=== PATIENT | male | born 1995 | race Caucasian/White ===

== ENCOUNTER → 2016-06-16 | Outpatient (CLI) | payer BC ==
[~2016-06-16] MED LIST: ARIP1TAB8 PO; BUPR-79 PO; BUPRTAB51 PO; ESCI1TAB10 PO; FLUV50TA2 PO
[2016-06-16 10:20] LABS: BENZODIAZEPINE, URINE NEG (NEG); COCAINE,URINE NEG (NEG); PHENCYCLIDINE, URINE NEG (NEG)
== END | disposition home or self-care (01) ==
LOC: C.LAB 09:07
PROVIDERS: ATTEND Psychiatry & Neurology Psychiatry
DX: F33.3 Major depressive disorder, recurrent, severe with psychotic symptoms (principal)

== ENCOUNTER 2016-11-20 22:11 | Emergency (ER) | payer BC ==
[~2016-11-20] VITALS: Ht 185.4 cm; Wt 115.7 kg
[~2016-11-20 22:11] MED LIST changes: -FLUV50TA2 PO
[2016-11-20 22:13] VITALS: TEMP 36.9; Ht 185.4 cm; Wt 115.7 kg
[2016-11-20] MEDS ORDERED: LORAZEPAM 1 MG TAB PO STA (22:30)
[2016-11-20] MEDS ORDERED: XYLOCAINE 1%/SOD BICARB 20 ML VIAL INFIL ONE (22:30)
[2016-11-20] MEDS ORDERED: OXYCODONE/ACETAMINOPHEN 5-325 TAB PO STA (22:30)
[2016-11-20] MEDS ORDERED: FLUV50TA2 PO (22:39)
[2016-11-21 00:26] VITALS: BP 132/76; PULSE 88; O2SAT 98
--- NOTE | 2016-11-21 05:19 | EMERGENCY ROOM VISIT NOTE ---
History First contact with patient: 22:19 Chief Complaint: WOUND INFECTION Stated Complaint: CYST ON LOWER BACK Nursing Triage Summary: reddened and painful area to coccyx. History of Present Illness The patient is a 21 year old male who presents to the Emergency Room with complaints of painful cyst above his tailbone. Patient states that he has had symptoms slowly worsening over the past week. He has not had drainage or discharge, and has not had symptoms like this in the past. The patient is not diabetic. He does not have a history of ulcerative colitis or inflammatory bowel disease. The patient rates his discomfort a 7/10 and worse when he sits. Review of Systems More than 10 systems were reviewed and otherwise negative with the exception of history of present illness. Past Medical/Surgical History Medical Problems: (1) Anxiety (2) Depression Family History Patient reports no known family medical history. Social History Smoking Status: Current Every Day Smoker Alcohol Use: occasionally Drug Use: marijuana Marital Status: single Occupation Status: [employer] student Current/Historical Medications Scheduled Aripiprazole (Abilify), 10 MG PO DAILY Bupropion (Wellbutrin-Xl), 300 MG PO DAILY Fluvoxamine Maleate (Luvox), 50 MG PO HS Physical Exam Vital Signs Date Time Temp Pulse Resp B/P (MAP) Pulse Ox O2 Delivery O2 Flow Rate FiO2 11/21/16 00:26 88 16 132/76 98 11/20/16 22:13 36.9 95 18 138/83 98 Room Air Pain Rating (0-10): 2.0 Physical Exam VITALS: Vitals are noted on the nurse's note and reviewed by myself. Vital signs stable. GENERAL: Well-developed, well-nourished, white male, who is in no acute distress and resting comfortably. Patient is cooperative with the examination. HEART: Regular rate and rhythm without murmurs gallops or rubs. LUNGS: Clear to auscultation bilaterally without wheezes, rales or rhonchi. No retractions or accessory muscle use. NEURO: Patient was alert and oriented to person place and time. CN II through XII grossly intact SKIN: The skin was with obvious pilonidal abscess at the superior aspect of the gluteal cleft. There is fluctuance inferiorly. Medical Decision & Procedures Medications Administered Medications (Trade) Dose Ordered Sig/Abran Route Start Time Stop Time Status Last Admin Dose Admin Oxycodone/ Acetaminophen (Percocet 5-325mg Tab) 2 tab NOW STAT PO 11/20/16 22:30 11/20/16 22:32 DC 11/20/16 22:49 2 TAB Lorazepam (Ativan Tab) 1 mg NOW STAT PO 11/20/16 22:30 11/20/16 22:32 DC 11/20/16 22:48 1 MG Procedure I examined the patient. Verbal consent was obtained to perform the procedure. After saline and Betadine cleansing and 5 mL of 1% buffered lidocaine anesthesia , the abscess was incised with a number 11 scalpel blade. A large amount of purulent material was released with more expressed by pressure. A swab was obtained for culture. The abscess cavity was further probed with a needle coal tram driver and the deep pocket expressed. The abscess cavity was then copiously irrigated with sterile saline under pressure. The area was then packed with bacitracin soaked packing. The area was cleaned with sterile saline and dressed with bacitracin and a bulky bandage. The patient tolerated the procedure well. ED Course Physical exam and history were performed. Nursing notes, EMR, and Medication List were personally reviewed. Patient appears to have an obvious pilonidal cyst that is grossly infected. It is fluctuant and will require incision and drainage. I discussed options of care with the patient, and elected to give him 2 Percocet and 1 Ativan prior to the procedure. The procedure was performed as above and the patient tolerated it well. His wound was packed and a culture was sent. The patient will need to have close follow-up within the next 2 days for recheck of his condition. The patient was certainly invited back to the ER with any new, worsening, or concerning symptoms. He voiced understanding and rated his discomfort a 2/10 at the time of departure. The chart was completed utilizing [employer] Speech Voice Recognition Software. Grammatical errors, random word insertions, pronoun errors, and incomplete sentences are an occasional consequence of this system due to software limitations, ambient noise, and hardware issues. Any formal questions or concerns about the content, text, or information contained within the body of this dictation should be directly addressed to the provider for clarification. . Medical Decision Differential diagnosis: Etiologies such as cellulitis, abscess, MRSA infection, DVT, necrotizing fasciitis, dermatitis, drug eruption, as well as others were entertained.. Medication Reconcilliation Current Medication List: was personally reviewed by me Blood Pressure Screening Blood pressure disposition: Elevated BP felt to be situational Impression Primary Impression: Pilonidal cyst with abscess Departure Information Dispostion Home / Self-Care Condition GOOD Forms HOME CARE DOCUMENTATION FORM, IMPORTANT VISIT INFORMATION Patient Instructions My [facility] Additional Instructions You were seen and evaluated today on an emergency basis only. This is not a substitute for, or an effort to provide, complete comprehensive medical care. It is not possible to recognize and treat all injuries or illnesses in a single emergency department visit. For this reason it is recommended that you followup with your family doctor or back in the emergency department in 36-48 hours for recheck of your condition. You were given narcotic medication here today because of your condition. Please do not drink or drive. For baseline pain relief you may alternate ibuprofen and acetaminophen every 4 hours for pain control. Take 600 mg ibuprofen (Advil) and then 4 hours later take 1000 mg acetaminophen (Tylenol). Do not take more than 3000 mg acetaminophen in a single day. Try to leave the packing material in place until your follow-up visit. You are welcome to return to the emergency department anytime with new, worsening, or concerning symptoms.
== END 2016-11-21 00:29 | disposition home or self-care (01) ==
LOC: C.EDB 22:12 → C.EDA 11-21 00:29
DX: L05.01 Pilonidal cyst with abscess (principal); F41.9 Anxiety disorder, unspecified; F32.9 Major depressive disorder, single episode, unspecified; F17.210 Nicotine dependence, cigarettes, uncomplicated; F12.90 Cannabis use, unspecified, uncomplicated; Z79.899 Other long term (current) drug therapy

== ENCOUNTER 2016-11-22 15:23 | Emergency (ER) | payer BC ==
[~2016-11-22] VITALS: Ht 185.4 cm; Wt 113.9 kg
[~2016-11-22 15:23] MED LIST changes: +FLUV50TA2 PO
[2016-11-22 15:28] VITALS: TEMP 36.9; Ht 185.4 cm; Wt 113.9 kg
[2016-11-22 16:19] VITALS: BP 153/83; PULSE 96; O2SAT 98
--- NOTE | 2016-11-23 00:26 | EMERGENCY ROOM VISIT NOTE ---
ED Visit Note First contact with patient: 15:37 CHIEF COMPLAINT: Wound recheck. HISTORY OF PRESENT ILLNESS: Mr. Shay is a 21-year-old white male who ambulates into the ED requesting a wound recheck and packing from a pilonidal cyst he had an I&D procedure performed on 2 days ago. He reports he continues to have mild pain in the area of his I&D procedure. He rates his discomfort 3/10. The pain is nonradiating. Pain worsens with palpation. He has not identified any alleviating factors related to the pain. He has not taken any medications for pain prior to arrival at the hospital. Associated with the pain he does report there is still continues to be a mild amount of drainage that appears purulent from the wound. He denies fevers, chills, sweats, other skin eruptions, skin color changes, shortness of breath, chest pain, abdominal pain, decreased appetite, nausea/ vomiting. REVIEW OF SYSTEMS: As noted above in History of Present Illness; a body systems were reviewed with the patient and found to be negative unless noted above otherwise. PHYSICAL EXAM: Vital Signs: Date Time Temp Pulse Resp B/P (MAP) Pulse Ox O2 Delivery O2 Flow Rate FiO2 11/22/16 16:19 96 20 153/83 98 11/22/16 15:28 36.9 92 20 156/87 96 Room Air General: 21-year-old white male in no acute distress, nontoxic-appearing, afebrile and hemodynamically stable. Neurological: Awake, alert and oriented 3. Answering questions appropriately and following commands. No focal motor or sensory deficits. Skin: Around patient's pilonidal cyst patient still has mild erythema but no lymphangitis. The areas warm but not hot to palpation. Although the area was not demarcated when I was reading the previous practitioner's note there does not appear to be any increasing signs of infection. Back: Please note SKIN above. No tenderness over the bony spine or throughout the paraspinous musculature. When I removed the packing patient had a small amount of purulent drainage but no active bleeding. This stopped after approximately 1 minute of packing removal. ED COURSE: Patient is assessed as noted above. Patient's packing was removed and his I&D procedure was covered with a sterile gauze bandage. Patient was educated about today's findings and instructed on his treatment plan ; he verbalizes understanding and agreement with this plan. DISPOSITION: Patient discharged home in stable condition. CLINICAL IMPRESSION: Wound recheck. Packing removal. PLAN: Patient was encouraged use ibuprofen or acetaminophen as needed for pain every 6 hours or alternate every 3. Patient was encouraged to have someone continue to observe his abscess daily and watch for signs of increasing infection. Patient was encouraged to follow-up with his PCP or return to the ED for signs of worsening infection or any new/concerning symptoms.
== END 2016-11-22 16:20 | disposition home or self-care (01) ==
LOC: C.EDB 15:24 → C.EDD 16:20
DX: L05.91 Pilonidal cyst without abscess (principal); Z48.00 Encounter for change or removal of nonsurgical wound dressing

== ENCOUNTER → 2017-03-18 | Outpatient (CLI) | payer BC ==
[~2017-03-18] MED LIST changes: -BUPR-79 PO; -ESCI1TAB10 PO
== END | disposition home or self-care (01) ==
LOC: C.LAB 17:16
PROVIDERS: ATTEND Psychiatry & Neurology Psychiatry
DX: F33.3 Major depressive disorder, recurrent, severe with psychotic symptoms (principal)

== ENCOUNTER 2017-05-27 14:47 | Emergency (ER) | payer BC ==
[~2017-05-27] VITALS: Ht 185.4 cm; Wt 106.6 kg
[2017-05-27 14:51] VITALS: BP 121/69; PULSE 84; TEMP 36.9; O2SAT 97; Ht 185.4 cm; Wt 106.6 kg
[2017-05-27] MEDS ORDERED: XYLOCAINE 1%/SOD BICARB 20 ML VIAL INFIL ONE (15:15)
[2017-05-27] MEDS ORDERED: ZOLP5TAB6 PO (16:01)
[2017-05-27] MEDS ORDERED: KETOROLAC TROMETHAMINE 60 MG/2 ML VIAL IM STA (16:01)
--- NOTE | 2017-05-27 16:01 | EMERGENCY ROOM VISIT NOTE ---
ED Visit Note First contact with patient: 14:57 CHIEF COMPLAINT: "I have an abscess right above my ass crack" HISTORY OF PRESENT ILLNESS: This 22-year-old male patient presents to the emergency department "a few weeks" after they noticed a hard, red, tender area "right above my ass crack". It is slowly getting larger, more painful and tender. The patient states he had the abscess drained approximately 6 months ago. He states a few weeks ago, he noticed it worsening. He states it has been "exponentially growing, and bilateral mean it is increasing in size daily" . No fever, chills, or loss of appetite. There has been no drainage from the area. There was no injury to the area preceding the infection. They rate the pain as minimal and 3/10. Tetanus shot is up to date. They have tried nothing. The patient is not diabetic. The patient has history of subcutaneous abscesses in the same area. REVIEW OF SYSTEMS: A 10 system review of systems was performed with positives and pertinent negatives listed in the history of present illness. All other systems were reviewed and are negative. ALLERGIES: None MEDICATIONS: None PMH: None SOCIAL HISTORY: The patient admits to smoking marijuana. He denies alcohol or tobacco use. He lives locally with family. PHYSICAL EXAM: Vital Signs: Reviewed Nurse's notes, vital signs stable. GENERAL : This is a 22-year-old white male, no acute distress, non toxic in appearance, well-developed well-nourished. SKIN: There is an erythematous indurated area in the sacrococcygeal area, just superior to the buttocks which measures about 2 cm in diameter. It is fluctuant but there is no pointing or drainage. There is a zone of inflammation around it but no lymphangitis. Capillary refill less than 2 seconds. MUSCULOSKELETAL: There is no limitation of the range of motion of the low back. EMERGENCY DEPARTMENT COURSE: I examined the patient. Verbal consent was obtained to perform the procedure. The procedure was performed by our PA student under my direct supervision. After saline and Betadine cleansing and 8 mL of 1% buffered lidocaine anesthesia, the abscess was incised with a number 11 scalpel blade. A large amount of purulent material was released with more expressed by pressure. A swab was obtained for culture. The abscess cavity was further probed with a needle truck driver flatbed and the deep pocket expressed. The abscess cavity was then copiously irrigated with sterile saline under pressure. The area was then packed with bacitracin soaked packing. The area was cleaned with sterile saline and dressed with bacitracin and a bulky bandage. The patient tolerated the procedure well. The patient was discharged home in stable condition. I attest that I have personally reviewed the patient's current medication list. Patient was found to have normal blood pressure on screening and does not require follow-up. DIFFERENTIAL DIAGNOSIS: abscess, cellulitis, pilonidal cyst, malignancy, and others DIAGNOSIS: Pilonidal abscess Problem List Medical Problems: (1) Anxiety Status: Chronic (2) Depression Status: Chronic Current/Historical Medications Scheduled PRN Zolpidem Tartrate (Zolpidem Tartrate), 5 MG PO HS PRN for Sleep Allergies Coded Allergies: No Known Allergies (Unverified , 03/04/17) Vital Signs Date Time Temp Pulse Resp B/P (MAP) Pulse Ox O2 Delivery O2 Flow Rate FiO2 05/27/17 14:51 36.9 84 18 121/69 97 Room Air Medications Administered Medications (Trade) Dose Ordered Sig/Abran Route Start Time Stop Time Status Last Admin Dose Admin Ketorolac Tromethamine (Toradol Inj) 60 mg NOW STAT IM 05/27/17 16:01 05/27/17 16:02 DC 05/27/17 16:01 60 MG Departure Information Impression Primary Impression: Pilonidal cyst with abscess Dispostion Home / Self-Care Condition GOOD Referrals Cookie Womack PA-C (PCP) Zac Quintanilla M.D. Patient Instructions ED Abscess IandD, ED Yasmine Anal Abscess IandD, My [facility] Additional Instructions You were seen in the emergency department today for a pilonidal abscess. This was successfully incised and drained. Keep the area clean and dry. There is packing in place in the wound. Do not remove the packing. Please avoid getting the area wet. The wound covered with a dry bandage. Ibuprofen(Motrin, Advil) may be used for fever or pain. Use 600mg every six hours as needed. Take with food. Avoid using more than 2400mg in a 24 hour period. Do not use 2400mg per day for more than three consecutive days without physician direction. Prolonged inappropriate use can lead to stomach upset or ulcers. (AND/OR) Acetaminophen(Tylenol) may be used for fever or pain. Use 1000mg every six hours as needed. Avoid using more than 3000mg in a 24 hour period. Return to the emergency department for worsening redness, swelling, significant purulent drainage, fever, chills, nausea, vomiting, or significantly worsening pain. Follow-up in 48 hours for packing removal and wound recheck. This follow-up can be at the emergency Department, urgent care, or your primary care provider. Please follow up with your primary care provider for ongoing management. As discussed, I do recommend follow-up with the general surgeon.
--- NOTE | 2017-05-30 15:12 | Pharmacy Progress Note ---
ED Pharmacist Culture FollowUp Date of Service: May 30, 2017. Patient was seen on 05/27/17 for abscess. Patient had I&D at visit and cultures obtained. Cultures grew Group B Beta Strep resistant to erythromycin, clindamycin, and azithromycin. Patient was not sent with abx and was to follow up in 48 hours w/ pcp or ED/urgent care/PCP for removal of packing and wound recheck. Discussed with Dr. Montenegro and no treatment necessary if improved from I&D. Called patient ~1500 to see if patient had followed up and had packing removed as patient was not seen in the ED. Patient stated they removed the packing themselves. Asked if he thought it was improved, stated it was "red and bumpy" and he would probably seek more treatment. I was not able to continue the conversation as patient abruptly ended the telephone call stating he was really busy and had to go immediately following statement.
== END 2017-05-27 16:18 | disposition home or self-care (01) ==
LOC: C.EDB 14:49 → C.EDD 16:18
DX: L05.01 Pilonidal cyst with abscess (principal); F12.90 Cannabis use, unspecified, uncomplicated; F41.9 Anxiety disorder, unspecified; F32.9 Major depressive disorder, single episode, unspecified

== ENCOUNTER 2017-07-30 16:48 | Emergency (ER) | payer BC ==
[~2017-07-30] VITALS: Ht 185.4 cm; Wt 98.4 kg
[~2017-07-30 16:48] MED LIST changes: -ARIP1TAB8 PO; -BUPRTAB51 PO; -FLUV50TA2 PO; +ZOLP5TAB6 PO
[2017-07-30 16:55] VITALS: TEMP 37; Ht 185.4 cm; Wt 98.4 kg
[2017-07-30] MEDS ORDERED: DEXT1LIQ58 PO (17:33)
[2017-07-30] MEDS ORDERED: AMOXICILLIN/CLAVULANATE TAB 875 MG TAB PO STA (17:40)
[2017-07-30] MEDS ORDERED: LIDOCAINE/EPINEPHRINE 1% 20 ML VIAL INFIL STA (17:40)
--- NOTE | 2017-07-30 18:27 | DIAGNOSTIC IMAGING REPORT ---
RIGHT HAND 3 VIEWS CLINICAL HISTORY: Right hand pain. Punching injury. FINDINGS: 3 views of the right hand are obtained. No prior studies are available for comparison at the time of dictation. The skeletal structures are well mineralized. There is minimal angulation of the distal fifth metacarpal with no acute fracture clearly identified. No additional findings are concerning for acute fracture. The joint spaces of the hand are well maintained. Dorsal soft tissue edema is noted. IMPRESSION: 1. There is mild angulation of the distal fifth metacarpal with no fracture line clearly identified. This is likely related to age indeterminant posttraumatic change. Correlate for point tenderness. 2. No additional findings are concerning for acute fracture. 3. Significant dorsal soft tissue edema is observed. Electronically signed by: Carlos Dominguez M.D. 07/30/2017 6:26 PM Dictated Date/Time: 07/30/2017 6:23 PM
--- NOTE | 2017-07-30 18:45 | EMERGENCY ROOM VISIT NOTE ---
ED Visit Note First contact with patient: 17:04 CHIEF COMPLAINT: "There's an abscess on my low back and my right hand hurts." HISTORY OF PRESENT ILLNESS: This 22-year-old male patient presents to the emergency department, ambulatory, approximately 1 week after they noticed a hard , red, tender area increasing in size over the tailbone. The patient does have a history of a pilonidal abscess, and states this has been drained 2-3 times previously. It is slowly getting larger, more painful and tender over the past week. No fever, chills, or loss of appetite. There has been no drainage from the area. There was no injury to the area preceding the infection. They rate the pain as severe and 10/10. Tetanus shot is up to date. They have tried no OTC remedies. The patient has not followed up with surgery as previously recommended. The patient is not diabetic. The patient also complains of right hand pain which began last night when he punched a garbage can. He states he is having extreme pain over the 4 metacarpals and digits #2 through 5. The patient rates the pain as sharp and 10 /10. The patient denies any numbness or tingling. The patient does not have injuries to the wrist. The patient has not had a previous fracture to this hand. He states he is unable to java jsf developer objects or make a claw. He states the injury occurred late last night, and states he just woke up and decided to come be evaluated. REVIEW OF SYSTEMS: A 10 system review of systems was performed with positives and pertinent negatives listed in the history of present illness. All other systems were reviewed and are negative. ALLERGIES: None MEDICATIONS: None PMH: None SOCIAL HISTORY: The patient lives locally with family. He denies drug, alcohol use. He admits to smoking 1 pack of cigarettes per day. PHYSICAL EXAM: Vital Signs: Reviewed Nurse's notes, vital signs stable. GENERAL : This is a 22-year-old white male, no acute distress, non toxic in appearance, well-developed well-nourished. SKIN: There is an erythematous indurated area in the sacrococcygeal area, just superior to the buttocks which measures about 2 cm in diameter. It is fluctuant but there is no pointing or drainage. There is a zone of inflammation around it but no lymphangitis. Capillary refill less than 2 seconds. MUSCULOSKELETAL: There is no limitation of the range of motion of the low back or lower extremities. There is no obvious deformity of the right hand. There is tenderness over the metacarpals and phalanges of digits #2 through 5. There is no thenar or hypothenar eminence atrophy. Limited thumb opposition to all fingers. Paper Novelty Maker strength 2/5. There is no laceration. Capillary refill less than 2 seconds. No tenderness of the fingers or wrist. Full range of motion of the wrist. No snuff box tenderness. Radial pulse 2+. RADIOLOGY: RIGHT HAND 3 VIEWS CLINICAL HISTORY: Right hand pain. Punching injury. FINDINGS: 3 views of the right hand are obtained. No prior studies are available for comparison at the time of dictation. The skeletal structures are well mineralized. There is minimal angulation of the distal fifth metacarpal with no acute fracture clearly identified. No additional findings are concerning for acute fracture. The joint spaces of the hand are well maintained. Dorsal soft tissue edema is noted. IMPRESSION: 1. There is mild angulation of the distal fifth metacarpal with no fracture line clearly identified. This is likely related to age indeterminant posttraumatic change. Correlate for point tenderness. 2. No additional findings are concerning for acute fracture. 3. Significant dorsal soft tissue edema is observed. Electronically signed by: Carlos Dominguez M.D. 07/30/2017 6:26 PM Dictated Date/Time: 07/30/2017 6:23 PM EMERGENCY DEPARTMENT COURSE: I examined the patient. X-ray of the right hand was performed and reviewed by myself and radiologist as above. There is concerned due to the mechanism and abnormality noted in the fifth metacarpal for possible boxer's fracture, and I did recommend Ortho-Glass splint or at least a removable splint. The patient declines these treatments despite discussion regarding the risks associated with refusing this treatment. I did encourage close orthopedic follow-up outpatient, and the patient declines this as well. He will be provided with the contact information for orthopedics, and was encouraged to contact them for follow-up on Tuesday. I did offer to have our field case manager schedule the patient an appointment and call him on Tuesday, and the patient declines this as well. I recommended against incision and drainage again here in the emergency department without outpatient follow-up of the pilonidal abscess. I did recommend antibiotic treatment at this time with surgery referral outpatient. The patient declines and insists that the abscess must be opened and drained again. He is agitated that the abscess continues to return, but I discussed with him the importance of follow-up outpatient for final management when there is no present infection. The patient verbalizes understanding, but states he is unsure that he will be able to afford the appointments and states he does not have time to schedule appointments. Verbal consent was obtained to perform the procedure. After saline and Betadine cleansing and 4 mL of 1% lidocaine with epinephrine anesthesia, the abscess was incised with a number 11 scalpel blade. A large amount of purulent material was released with more expressed by pressure. The patient declined culture. The abscess cavity was further probed with a needle driver utility worker and the deep pocket expressed. The abscess cavity was then copiously irrigated with sterile saline under pressure. The area was then packed with 1/4 in. packing. The area was cleaned with sterile saline and dressed with bacitracin and a bulky bandage. The patient tolerated the procedure well. The patient is very concerned regarding cost of his care here in the emergency department. He states he is unable to afford certain tests and treatments due to the associated cost. I did discuss with the patient that I am unaware of specific costs of procedures, testing, and treatment, but did discuss with him the importance of proper management and care. The nursing beet end supervisor, [place], did have a conversation with the patient, and states he was agreeable to workup recommended here in the emergency department. I did discuss with the patient the importance of proper outpatient care and did discuss with him multiple times that he will be offered and given appropriate treatment for his complaints despite the potential costs. The patient was given his first dose of Augmentin. I did offer a home pack of the medication, the patient declines. A prescription was sent to the pharmacy. Discharge instructions reviewed, the patient was discharged home in good condition. I attest that I have personally reviewed the patient's current medication list. Patient was found to have normal blood pressure on screening and does not require follow-up. Etiologies such as soft tissue injury, fracture, dislocation, neurovascular compromise, compartment syndrome, abscess, cellulitis, pilonidal cyst, malignancy, as well as others were entertained. DIAGNOSIS: Pilonidal cyst with abscess, right hand contusion Problem List Medical Problems: (1) Anxiety Status: Chronic (2) Depression Status: Chronic Current/Historical Medications Scheduled Amoxicillin & Pot Clavulanate (Augmentin 875-125 mg), 1 TAB PO BID Dextromethorphan-Phenylephrine (Vicks Dayquil Cold & Flu), 1 DOSE PO PRN UD Allergies Coded Allergies: No Known Allergies (Unverified , 03/04/17) Vital Signs Date Time Temp Pulse Resp B/P (MAP) Pulse Ox O2 Delivery O2 Flow Rate FiO2 07/30/17 19:38 75 18 111/59 97 07/30/17 18:45 80 20 104/70 97 Room Air 07/30/17 16:55 37.0 97 18 127/78 96 Room Air Medications Administered Medications (Trade) Dose Ordered Sig/Abran Route Start Time Stop Time Status Last Admin Dose Admin Amoxicillin/ Clavulanate Potassium (Augmentin Tab) 875 mg NOW STAT PO 07/30/17 17:40 07/30/17 17:44 DC 07/30/17 17:54 875 MG Lidocaine/ Epinephrine (Xylocaine/Epine 1% Inj) 20 ml NOW STAT INFIL 07/30/17 17:40 07/30/17 17:44 DC 07/30/17 17:54 20 ML Departure Information Impression Primary Impression: Pilonidal cyst with abscess Additional Impression: Contusion of right hand Dispostion Home / Self-Care Condition GOOD Prescriptions Amoxicillin & Pot Clavulanate (Augmentin 875-125 mg) 1 Tab Tab 1 TAB PO BID for 10 Days, #20 TAB Prov: Camilla Lutz, DANI 07/30/17 Referrals No Doctor, Assigned (PCP) Kevin oRdriguez M.D., John C., DO Patient Instructions ED Cyst Pilonidal Infected IandD, ED Fx Giuseppe, My [facility] Additional Instructions ORTHOPEDIC INSTRUCTIONS: You were seen in the emergency department today for right hand pain and swelling. There was concern for a possible fifth metacarpal fracture, AKA boxer 's fracture. I did recommend a splint to immobilize the hand, but you did decline. It is imperative that you follow-up with orthopedics in 2-3 days for reevaluation. I do recommend not using the hand and immobilizing the joints until you are seen and evaluated by orthopedics and there is verification of no fracture. As discussed, some fractures do not show up immediately on x-ray. Ibuprofen(Motrin, Advil) may be used for fever or pain. Use 600mg every six hours as needed. Take with food. Avoid using more than 2400mg in a 24 hour period. Do not use 2400mg per day for more than three consecutive days without physician direction. Prolonged inappropriate use can lead to stomach upset or ulcers. (AND/OR) Acetaminophen(Tylenol) may be used for fever or pain. Use 1000mg every six hours as needed. Avoid using more than 3000mg in a 24 hour period. Ice compresses for 20 minutes at a time four times daily for 2-3 days. Rest and elevate your injury. You may consider an Freddy wrap for compression and mild immobilization of the hand. Return to the ER immediately for any numbness, tingling, severe pain, extreme swelling, discoloration, or other abnormalities in the extremity or as needed. Call [facility], [phone], on Tuesday to arrange follow up for your injury. Follow-up with your primary care physician in 2 to 3 days for a recheck of your current condition. ABSCESS INSTRUCTIONS: You were seen in the Emergency Department for Incision and Drainage of the pilonidal abscess for the third time. You will NEED to return to the Emergency Department or see the general surgeon to have the packing removed/changed in 48 hours. This packing is NOT dissolvable and WILL need to be removed by a health care provider. Try to leave the packing in place until you return to the Emergency Department. You were prescribed Augmentin to be taken twice daily for 10 days. This medication is an antibiotic. Stop these medications and contact a medical provider if you were to develop any significant adverse side effects including: wheezing, shortness of breath, passing out, vomiting, or a diffuse rash. Always take antibiotics as directed and COMPLETE the ENTIRE course regardless of the improvement of your symptoms. Proper wound care is essential for adequate wound healing and infection prevention. You can shower and clean the wound with soap and water. Do not scour over the wound. Pat dry with a towel. Do not submerse the wound (i.e. bathe or dish wash) until the sutures have been removed. You can use an antibiotic ointment with a dressing over the wound for the next 3-4 days. After this time you may leave the wound dry and open to the air. If crust develops over the wound you can use a Q-tip to apply a 1:1 peroxide:water solution to clean the wound. Look for signs of infection of the wound including: increased pain, swelling, foul discharge, streaking, or increased temperature. If any of these are noticed you should return to the Emergency Department for further assessment and treatment. As with any laceration you may have received nerve damage to the surrounding tissues. This damage may or may not be permanent. IT IS IMPERATIVE THAT YOU FOLLOW-UP WITH THE GENERAL SURGEON NEXT WEEK FOR FURTHER MANAGEMENT OF THE ABSCESS AND FINALIZED TREATMENT. Contact Dr. Rodriguez's office at the number provided ON Tuesday. If you are sent to a switchboard during the call, ask for the GENERAL SURGEON'S OFFICE. Return to the emergency department if your symptoms worsen despite treatment course outlined above. Problem Qualifiers Additional Impression: Contusion of right hand Encounter type: initial encounter Qualified Codes: S60.221A - Contusion of right hand, initial encounter
[2017-07-30 19:38] VITALS: BP 111/59; PULSE 75; O2SAT 97
[2017-07-30] MEDS ORDERED: AMOX875T PO (19:52)
== END 2017-07-30 19:40 | disposition home or self-care (01) ==
LOC: C.EDB 16:50 → C.EDD 19:40
DX: L05.01 Pilonidal cyst with abscess (principal); S60.221A Contusion of right hand, initial encounter; W22.8XXA Striking against or struck by other objects, initial encounter; F17.210 Nicotine dependence, cigarettes, uncomplicated; Z86.59 Personal history of other mental and behavioral disorders

== ENCOUNTER → 2017-08-19 | Day surgery (SDC) | payer BC ==
[2017-08-12 13:11] VITALS: Ht 185.4 cm; Wt 97.3 kg
[~2017-08-19] VITALS: Ht 185.4 cm; Wt 97.3 kg
[~2017-08-19] MED LIST changes: +ATROPINE SULFATE 0.1 MG/ML 5ML SYR IV PRN; +BENZOIN SPRAY 118 ML BTL TOP ONE; +BUPIVACAINE 0.5 % 5 MG/1 ML MPF 30ML VIAL ONE; +BUPIVACAINE LIPOSOME 1/3% 266 MG/20 ML VIAL INFIL SCH; +BUPIVACAINE/EPINEPHRINE 0.5% MPF 1:200,000 30 ML VIAL ONE; +CEFAZOLIN 2000MG IV PUSH 15 ML IV SCH; +DEXAMETHASONE SOD INJ 4 MG/ML VIAL ONE; +EpHEDrine SULFATE INJ 50 MG/ML AMP IV PRN; +FENTANYL CITRATE INJ 50 MCG/1 ML 2 ML VIAL IV PRN; +FENTANYL CITRATE INJ 50 MCG/1 ML 2 ML VIAL ONE; +GLYCOPYRROLATE INJ 0.2 MG/ML VIAL ONE; +HYDROmorphone INJ 2 MG/ML SYR/VIAL IV PRN; +KETOROLAC TROMETHAMINE 30 MG/ML VIAL IV. PRN; +LACTATED RINGER'S 1000ML 1,000 ML IV SCH; +LIDOCAINE HCL 1% 20 ML VIAL ONE; +LIDOCAINE HCL 2% 2 ML VIAL (20MG/ML) ONE; +METHYLENE BLUE 0.5% 10 ML VIAL ONE; +MIDAZOLAM HCL 1 MG/ML 2ML VIAL ONE; +MULT-506 PO; +MoRPHine SULFATE 2 MG/ML CARP IV PRN; +NEOSTIGMINE METHYLSULFATE 5 MG/5 ML SYR ONE; +ONDANSETRON INJ 2 MG/ML 2 ML VIAL IV PRN; +ONDANSETRON INJ 2 MG/ML 2 ML VIAL ONE; +OXYC-57 PO; +OXYCODONE/ACETAMINOPHEN 5-325 TAB PO PRN; +PHENYLEPHRINE 100MCG/ML 5ML SYR IV PRN; +PROMETHAZINE HCL INJ 12.5 MG in SODIUM CHLORIDE 0.9% 50ML 50 ML IV PRN; +PROPOFOL IV EMULSION 10 MG/ML 20 ML VIAL IV ONE; +ROCURONIUM BROMIDE 10 MG/ML 5 ML VIAL IV ONE; -ZOLP5TAB6 PO
--- NOTE | 2017-08-19 09:20 | History & Physical Bridge - SC ---
H&P Re-Evaluation Bridge Note: I have examined the patient, reviewed the History & Physical and in the interval since the performance of the History & Physical I have noted the following changes of clinical significance: No changes noted
--- NOTE | 2017-08-19 09:42 | Discharge Instructions-SurgCtr ---
Discharge Instructions Date of Service Aug 19, 2017. Visit Reason for Visit: Pilonidal Cyst Discharge Discharge Diagnosis / Problem: pilonidal cyst Discharge Goals Goal(s): Decrease discomfort, Therapeutic intervention Activity Recommendations Activity Limitations: as noted below Lifting Limitations: no more than 25 pounds Exercise/Sports Limitations: until after follow-up appointment Shower/Bathe: tomorrow Driving or Machine Use: resume 3 days after discharge Avoid long periods of sitting or pressure to her buttocks and sacrum for 6 weeks after surgery. Anesthesia . Post Anesthesia Instructions: If you have had General Anesthesia or IV Sedation: * Do not drive today. * Resume driving when surgeon permits. * Do not make important decisions or sign legal documents today. * Call surgeon for: 1. Temperature elevations greater than 101 degrees F. 2. Uncontrollable pain. 3. Excessive bleeding. 4. Persistent nausea and vomiting. 5. Medication intolerance (nausea, vomiting or rash). * For nausea and vomiting use only clear liquids such as: tea, soda, bouillon until nausea subsides, then gradually increase diet as tolerated. * If you have any concerns or questions, call your surgeon's office. If physician is unavailable and it is an emergency, call 911 or go to the nearest emergency room. . Instructions / Follow-Up Instructions / Follow-Up Follow-up in the general surgery clinic in 2 weeks for suture removal. Call sooner with questions or concerns. Diet Recommendations Home Diet: resume previous diet Procedures Procedures Performed: pilonidal cystectomy Pending Studies Studies pending at discharge: no Medical Emergencies . Who to Call and When: Medical Emergencies: If at any time you feel your situation is an emergency, please call 911 immediately. . Non-Emergent Contact Non-Emergency issues call your: Surgeon Call Non-Emergent contact if: temperature is above 101.5, your pain is not controlled, your pain is worsening, wound has increased drainage, wound has increased redness, wound has increased pain . . "Provider Documentation" section prepared by Kavin Hadley. . [place] Drug Monitoring Program Search Results: no issues identified
[2017-08-19] MEDS: LIDOCAINE/EPINEPHRINE 1% 20 ML VIAL ONE ×2 (10:11→10:12)
--- NOTE | 2017-08-19 10:29 | [facility] Post Operative Brief Note ---
Immediate Operative Summary Operative Date Aug 19, 2017. Pre-Operative Diagnosis Pilonidal Cyst Post-Operative Diagnosis Same Procedure(s) Performed Pilonidal Cystectomy Surgeon Dr. Hadley Control Inspector Surgeon(s) Loli Gil PA-C Estimated Blood Loss 4 ml Findings Consistent with Post-Op Diagnosis Pilonidal cyst excised, closed in layers Specimens A.) Pilonidal Cyst Drains None Anesthesia Type General Complication(s) none Disposition Accompanied Pt To Recovery: no Disposition: Recovery Room / PACU
--- NOTE | 2017-08-19 10:36 | [facility] Operative Report ---
Operative Report Operative Date Aug 19, 2017. Pre-Operative Diagnosis Pilonidal Cyst Post-Operative Diagnosis Same Procedure(s) Performed Pilonidal Cystectomy Surgeon Dr. Hadley Trackwalker Surgeon(s) Loli Gil PA-C Estimated Blood Loss 4 ml Findings Pilonidal cyst excised, closed in layers Specimens A.) Pilonidal Cyst Drains None Anesthesia Type General Complication(s) none Disposition no Recovery Room / PACU Indications 22-year-old male with history of pilonidal disease requiring multiple incision and drainage procedures, plan for pilonidal excision. The risks of the procedure were discussed, all questions were answered, and the patient agreed to proceed with surgery as planned. He understands that there is a high risk of wound complications and recurrence, and this is made worse by smoking. Description of Procedure The patient was properly identified, consented, and taken to the operating room where general endotracheal anesthesia was induced. He was placed in the prone jackknife position. Preoperative antibiotics were administered. The patient's buttocks were secured with tape to expose the midline cleft. The patient's lower back and buttocks were prepped and draped in the standard sterile fashion. Surgical timeout was performed and all parties were in agreement that this was the correct patient and procedure to be performed and we continued as planned. Local anesthetic was injected in the form of 1% lidocaine with epinephrine along the proposed incision. Methylene blue was injected into the pits. The diseased tissue including all pits and abscess cavities were excised. The diseased tissue was passed off as specimen. Hemostasis was achieved in the wound and the wound was irrigated. Exparel was injected in the surrounding fat. The wound was then closed in multiple layers using 2-0 Vicryl interrupted sutures followed by 3-0 Vicryl interrupted deep dermal sutures. 3-0 nylon interrupted simple sutures were then used to close the skin. Fluff gauze, and ABD, and disposable mesh underwear were then applied for the dressing. The patient was placed back in the supine position and the patient was extubated. The patient was transferred to the PACU for recovery in stable condition. All sponge, instrument, and needle counts were correct at the conclusion of the procedure. The patient tolerated the procedure well. The physician's entry level administrative assistant was present and scrubbed for the entirety of the case. He was essential in positioning the patient, prepping and draping, retraction and exposure, excision of the pilonidal cyst, closure of the wound, and placement of the dressings. I attest to the content of the Intraoperative Record and any orders documented therein. Any exceptions are noted below.
[2017-08-19 11:27] VITALS: TEMP 36.4
[2017-08-19 12:01] VITALS: BP 120/65; PULSE 58; O2SAT 96
--- NOTE | 2017-08-19 12:06 | Anesthesia Progress Nt - [facility] ---
Anesthesia Post Op Note Date & Time Aug 19, 2017 at 12:06 Vital Signs Pain Intensity: 5.0 Vital Signs Past 12 Hours Date Time Temp Pulse Resp B/P (MAP) Pulse Ox O2 Delivery O2 Flow Rate FiO2 08/19/17 12:01 58 16 120/65 (83) 96 Room Air 08/19/17 11:27 36.4 55 16 103/63 (76) 97 Room Air 08/19/17 11:11 36.3 47 12 117/72 96 Room Air 08/19/17 10:41 36.2 52 16 115/70 97 Nasal Cannula 4 08/19/17 08:30 36.9 70 16 125/79 (94) 99 Room Air Notes Mental Status: alert / awake / arousable, participated in evaluation Pt Amnestic to Procedure: Yes Nausea / Vomiting: adequately controlled Pain: adequately controlled Airway Patency, RR, SpO2: stable & adequate BP & HR: stable & adequate Hydration State: stable & adequate Anesthetic Complications: no major complications apparent
== END | disposition home or self-care (01) ==
LOC: X.SURG 08:18
PROVIDERS: ATTEND Surgery
DX: L05.91 Pilonidal cyst without abscess (principal); F17.200 Nicotine dependence, unspecified, uncomplicated; F31.9 Bipolar disorder, unspecified; F12.10 Cannabis abuse, uncomplicated; Z81.8 Family history of other mental and behavioral disorders; Z82.49 Family history of ischemic heart disease and other diseases of the circulatory system; Z83.3 Family history of diabetes mellitus